=== PATIENT | female | born 1990 | race Two or more races ===

== ENCOUNTER 2016-07-10 07:10 | Emergency (ER) | payer MEDICAID ==
--- NOTE | 2016-07-10 08:16 | EDPHY ---
H & P Stated Complaint: cough and fever, chills since monday. vomiting due to cough. Time Seen by Provider: 07/10/16 08:06 HPI/ROS: CHIEF COMPLAINT: URI symptoms HISTORY OF PRESENT ILLNESS: 25-year-old insulin-dependent diabetic presents emergency department with a one-week history sore throat, nasal congestion, cough. Patient reports she started with fevers that have resolved, she reports her cough has been worsening. She reports post-tussive emesis. Patient states she feels nauseous and dehydrated. Patient reports her blood sugar was 400 this morning. She denies current fevers, she is taking [id number] Robitussin and Karen-[place]on with minimal relief. Patient denies chest pain, no shortness of breath. No abdominal pain or diarrhea. REVIEW OF SYSTEMS: A comprehensive 10 point review of systems is otherwise negative aside from elements mentioned in the history of present illness. Source: Patient Exam Limitations: No limitations - Personal History LMP (Females 10-55): Now Current Tetanus/Diphtheria Vaccine: Yes Current Tetanus Diphtheria and Acellular Pertussis (TDAP): Yes Tetanus Vaccine Date: 2007 - Medical/Surgical History Hx Diabetes: Yes Other PMH: PMH: DM type 1 - Family History Significant Family History: No pertinent family hx - Social History Smoking Status: Former smoker - Physical Exam Exam: General: Alert, nontoxic. ENT: Tympanic membranes clear, external auditory canal, external ear and surrounding soft tissue including over the mastoid unremarkable. Nasopharynx is injected, there is yellow rhinorrhea. Frontal and maxillary facial tenderness to palpation bilaterally. Oropharynx with erythema. There is no exudate. No tonsillar hypertrophy. No asymmetry. The uvula is midline. No elevation of tongue. There is no hoarseness. No drooling, patient has good control of their oral secretions. No trismus. No stridor. Cardiac: Tachycardic rate and rhythm. Respiratory: Lungs clear to auscultation bilaterally. Neurological: no meningismus. Skin: No rashes. Constitutional: Initial Vital Signs Temperature (C) 36.7 C 07/10/16 07:20 Heart Rate 106 H 07/10/16 07:20 Respiratory Rate 16 07/10/16 07:20 Blood Pressure 127/82 H 07/10/16 07:20 O2 Sat (%) 96 07/10/16 07:20 O2 Delivery Mode Room Air Allergies/Adverse Reactions: No Known Allergies Allergy (Verified 02/22/14 07:41) Home Medications: Medication Instructions Recorded Insulin Aspart [novoLOG] 100 unit IV CONT 06/23/11 Amoxicillin/Clavulanate Pot 875 mg PO BID #20 tab 02/22/14 [Augmentin 875 mg tab] Albuterol [Proventil Inhaler HFA 1 - 2 puffs IH Q4H #1 mdi 07/10/16 (*)] Amoxicillin/Clavulanate Pot 875 mg PO BID #20 tab 07/10/16 [Augmentin 875Mg] Benzonatate [Tessalon Pearles (RX)] 100 mg PO Q8 PRN #20 cap 07/10/16 Fluticasone Nasal [Flonase Nasal 1 sprays NASAL DAILY #1 mdi 07/10/16 Wren (RX)] Guaifenesin/Codeine Phosphate 10 ml PO HS PRN #120 ml 07/10/16 [Guaifenesin-Codeine Liquid] Medical Decision Making - Diagnostics Imaging Results: Imaging Impressions Chest X-Ray 07/10/16 08:16 Impression: Possible mild airways disease. No pneumonia. Imaging: I viewed and interpreted images myself ED Course/Re-evaluation: 25-year-old insulin-dependent diabetic presents with URI symptoms x1 week with worsening cough, nausea and vomiting. IV established, chemistry panel obtained showing blood sugar of 263 with an anion gap 15. Patient is given 2 L of normal saline, Zofran, Tylenol, Tessalon Perles, DuoNeb and a chest x-ray is obtained. Chest x-ray shows no evidence of pneumonia, influenza is negative. I will treat the patient with Augmentin for a sinusitis. She is given strict return precautions for any worsening symptoms. The patient is instructed to monitor her blood sugar closely. She has an insulin pump. Patient agrees to follow up with her primary care doctor this week for re-evaluation. Differential Diagnosis: Diagnosis considered but not limited to sinusitis, pneumonia, influenza, URI - Data Points Laboratory Results: Laboratory Results 07/10/16 08:50 07/10/16 07/10/16 07/10/16 09:05 08:50 08:50 Sodium 138 mEq/L mEq/L (134-144) Potassium 4.2 mEq/L mEq/L (3.5-5.2) Chloride 99 mEq/L mEq/L (97-110) Carbon Dioxide 24 mEq/l mEq/l (22-31) Anion Gap 15 mEq/L mEq/L (8-16) BUN 13 mg/dL mg/dL (7-23) Creatinine 0.8 mg/dL mg/dL (0.6-1.0) Estimated GFR > 60 Glucose 263 mg/dL H mg/dL (70-100) Calcium 10.5 mg/dL H mg/dL (8.5-10.4) Beta HCG, Qual NEGATIVE Influenza A,B Rapid NEGATIVE FOR FLU (NEGATIVE) Departure - Departure Disposition: Home, Routine, Self-Care Clinical Impression: Sinusitis Qualifiers: Sinusitis location: frontal Chronicity: acute Recurrence: non-recurrent Qualified Code(s): J01.10 - Acute frontal sinusitis, unspecified Condition: Good Instructions: Sinusitis (ED) Additional Instructions: Take your antibiotics as prescribed, Augmentin twice daily for 10 days. Use 2 puffs of albuterol inhaler every 4-6 hours as needed for cough. Use 1 spray of Flonase in each nostril daily for 7 days. Take 100 mg of Tessalon Perles every 8 hours as needed for cough. Use cough syrup at night as needed. Take 600mg of ibuprofen every 8 hours with food for 3 days. You can alternate this with 650mg of tylenol every 8 hours. Rest, drink plenty of fluids. Check your blood sugars frequently while you are sick. Use a saline nasal rinse, humidifier at night, hot steam showers. Return to the ED for difficulty breathing, chest pain, other concerns. Referrals: Thuan Garvin MD [Primary Care Provider] - As per Instructions Prescriptions: Albuterol [Proventil Inhaler HFA (*)] 1 - 2 puffs IH Q4H #1 mdi Amoxicillin/Clavulanate Pot [Augmentin 875Mg] 875 mg PO BID #20 tab Benzonatate [Tessalon Pearles (RX)] 100 mg PO Q8 PRN #20 cap PRN Reason: Cough, Moderate Fluticasone Nasal [Flonase Nasal Wren (RX)] 1 sprays NASAL DAILY #1 mdi Guaifenesin/Codeine Phosphate [Guaifenesin-Codeine Liquid] 10 ml PO HS PRN #120 ml PRN Reason: Cough, Moderate
[2016-07-10] MEDS ORDERED: NS 1,000 ML IV ONE ×2 (08:21→09:34)
[2016-07-10] MEDS ORDERED: KETOROLAC 15 MG/1 ML SDV IVP ONE (08:21)
[2016-07-10] MEDS ORDERED: HYDROCODONE/APAP 5/325 TAB PO ONE (08:21)
[2016-07-10] MEDS ORDERED: ONDANSETRON 4 MG/2 ML VIAL IVP ONE (08:21)
[2016-07-10] MEDS ORDERED: IPRATROPIUM/ALBUTEROL 3 ML DEYVIAL IH ONE (08:51)
[2016-07-10] MEDS ORDERED: BENZONATATE 100 MG CAP PO ONE (08:52)
[2016-07-10 09:15] LABS: ANION GAP 15 mEq/L (8-16); CALCIUM 10.5 mg/dL (8.5-10.4); CARBON DIOXIDE 24 mEq/l (22-31); CHLORIDE 99 mEq/L (97-110); CREATININE 0.8 mg/dL (0.6-1.0); GLOMERULAR FILTRATION RATE > 60; GLUCOSE 263 mg/dL (70-100); POTASSIUM 4.2 mEq/L (3.5-5.2); SODIUM 138 mEq/L (134-144)
[2016-07-10 10:43] VITALS: BP 106/61; PULSE 108; RESP 17; TEMP 98.8; O2SAT 98
== END 2016-07-10 10:42 | disposition home or self-care (01) ==
DX: J01.10 Acute frontal sinusitis, unspecified (principal); E10.9 Type 1 diabetes mellitus without complications; Z87.891 Personal history of nicotine dependence
CPT/HCPCS: 96374; J1885; J2405